=== PATIENT | female | born 1970 | race Caucasian/White ===

== ENCOUNTER 2025-01-24 21:08 | Emergency (ER) | payer MEDICAID, OTHER ==
[~2025-01-24] VITALS: Ht 160 cm; Wt 69.0 kg
[2025-01-24 21:11] VITALS: O2SAT 99
[2025-01-24] MEDS: OLANZAPINE 5MG TABLET ODT PO ONE (22:00)
[2025-01-25] MEDS: ZIPRASIDONE MESYLATE 20MG/VIAL IM ONE
[2025-01-25] MEDS ORDERED: LORAZEPAM 2MG/ML INJ IV ONE (00:30)
[2025-01-25] MEDS ORDERED: LORAZEPAM 2MG/ML INJ IM ONE ×2 (00:30→00:45)
[2025-01-25] MEDS: OLANZAPINE 5MG TABLET ODT PO NR (00:45)
[2025-01-25] MEDS: LORAZEPAM 2MG/ML UD SYRINGE IM NR (00:45)
[2025-01-25 03:39] LABS: BASOPHILS % 0.5 % (0.0-2.0); EOSINOPHILS % 0.5 % (0.0-5.0); HEMATOCRIT. 40.7 % (36.0-48.0); HEMOGLOBIN. 13.7 g/dL (12.0-16.0); LYMPHOCYTES % 37.6 % (20.0-50.0); MEAN CORPUSCULAR HEMOGLOBIN 33.4 pg (28.0-32.0); MEAN CORPUSCULAR HGB CONC 33.8 g/dL (31.0-37.0); MEAN CORPUSCULAR VOLUME 98.8 fL (81.0-99.0); MEAN PLATELET VOLUME 10.9 fl (7.4-10.4); MONOCYTES % 8.4 % (2.0-8.0); PLATELET 108 x1000/uL (130-400); RED BLOOD CELL COUNT 4.12 mill/uL (4.2-5.4); RED CELL DISTRIBUTION WIDTH 13.1 % (11.6-14.6); WHITE BLOOD COUNT 4.8 x1000/uL (4.5-11.0)
[2025-01-25 03:42] LABS: CALCIUM 9.4 mg/dL (8.7-10.4); CARBON DIOXIDE 24 mEq/L (21-32); CHLORIDE 110 mEq/L (98-107); SODIUM 145 mEq/L (136-145)
[2025-01-25 03:47] LABS: CREATININE 0.7 mg/dL (0.6-1.0)
[2025-01-25 03:48] LABS: ETHANOL BLOOD < 10 mg/dL (<10); GLUCOSE 103 mg/dL (70-105); UREA NITROGEN BLOOD 15 mg/dL (9-23)
[2025-01-25 03:49] LABS: ACETAMINOPHEN < 2 ug/mL (10-30)
[2025-01-25 03:50] LABS: POTASSIUM 2.7 mEq/L (3.5-5.1)
[2025-01-25] MEDS: POTASSIUM CHLORIDE 20MEQ TABLET SR PO ONE (06:14)
[2025-01-25] MEDS: KCL 10MEQ/50ML PREMIX 50 ML IV ONE (06:23)
[2025-01-25 12:14] VITALS: BP 130/75; PULSE 59; RESP 13; TEMP 37.1; O2SAT 99
== END 2025-01-25 12:27 | disposition home or self-care (01) ==
LOC: ER 21:08
DX: R46.1 Bizarre personal appearance (principal); Z79.899 Other long term (current) drug therapy
CPT/HCPCS: 36415; 99285; 80048; 80307; 80329; 80320; 85025; 96365; 96372; J3486; J3480; 96360; J2060; G0480